=== PATIENT | male | born 1955 | race Caucasian/White ===

== ENCOUNTER → 2018-07-03 08:57 | Outpatient (CLI) | payer OTHER, SELFPAY ==
[2018-07-03 11:06] LABS: Cholesterol 273 mg/dL (200); Glucose 105 mg/dL (74-106); High Density Lipoprotein 78 mg/dL; PSA,Total - Annual Screen 0.71 ng/mL (0.00-4.00); Triglycerides 197 mg/dL; Very Low Density Lipoprotein 39 mg/dL (5-40)
[2018-07-03 11:45] LABS: Hemoglobin A1c 5.5 % (4.2-6.3)
== END ==
PROVIDERS: Family Provider Family Medicine; PCP Family Medicine; Referring Provider Family Medicine; Visit Provider Family Medicine
DX: Z12.5 Encounter for screening for malignant neoplasm of prostate (principal); R73.01 Impaired fasting glucose; E78.00 Pure hypercholesterolemia, unspecified
CPT/HCPCS: 36415; 80061; 82947; 83036; 84153; G0103